=== PATIENT | female | born 1970 | race Two or more races ===

== ENCOUNTER 2016-11-10 19:09 | Inpatient (IN) | payer MEDICAID ==
[~2016-11-10] VITALS: Ht 142.2 cm; Wt 55.8 kg
[2016-11-10 20:18] LABS: CALCIUM 8.2 mg/dL (8.5-10.1); CARBON DIOXIDE 28.5 mmol/L (21-32); CHLORIDE SERUM 105 mmol/L (98-107); CREATININE SERUM 0.8 mg/dL (0.6-1.0); GFR1 > 60 mL/min; GLUCOSE SERUM 113 mg/dL (74-106); POTASSIUM SERUM 4.2 mmol/L (3.5-5.1); SODIUM SERUM 139 mmol/L (136-145)
[2016-11-10 20:20] LABS: BASOPHIL % 0.6 % (0-2); PLATELET COUNT 310 x10^3mcL (130-400)
[2016-11-10 20:22] LABS: RED CELL DISTRIBUTION WIDTH 20.8 % (11.5-14.5)
[2016-11-10 20:23] LABS: ALKALINE PHOSPHATASE 68 U/L (46-116); ALT/SGPT 39 U/L (14-59); AST/SGOT 20 U/L (15-37); BILIRUBIN TOTAL 0.2 mg/dL (0.20-1.00); TOTAL PROTEIN, SERUM 7.2 g/dL (6.4-8.2)
[2016-11-10 20:26] LABS: ALBUMIN 3.3 g/dL (3.4-5.0)
[2016-11-10 20:36] LABS: rbc morphology (normal/abnorm) ABNORMAL (NORMAL)
[2016-11-10 20:48] LABS: AMPHETAMINE QUAL UR NONE DETECTED (NEG <=1000)
[2016-11-10] MEDS ORDERED: LEVOTHYROXIN0.025 M2 PO (21:45)
[2016-11-10] MEDS ORDERED: PROTONIX20 MG PO (21:46)
[2016-11-10] MEDS ORDERED: NATURAL IRON65 MG (21:46)
[2016-11-10 22:41] VITALS: BP 127/52
[2016-11-11 00:56] LABS: T3 TOTAL 1.11 ng/mL
[2016-11-11 00:57] LABS: CHOLESTEROL/HDL RATIO 4.8
[2016-11-11 00:59] LABS: FREE T4 0.88 ng/dL (0.76-1.46); FREE THYROXINE INDEX 2.8 ug/dL (1.4-4.5); T4(THYROXINE) 8.9 ug/dL (4.7-13.3)
[2016-11-11 01:01] LABS: UA SPECIFIC GRAVITY <=1.005 (1.005-1.035); microscopic required? YES; urine erythrocyte 2+ (NEGATIVE)
[2016-11-11 05:33] VITALS: BP 130/74
[2016-11-11 10:58] VITALS: BP 112/72
[2016-11-11 13:52] VITALS: BP 112/63
[2016-11-11 18:05] VITALS: BP 110/62
[2016-11-11 23:06] VITALS: BP 105/61
[2016-11-12 05:33] VITALS: BP 107/68
[2016-11-12 06:37] LABS: CALCIUM 8.1 mg/dL (8.5-10.1); CARBON DIOXIDE 26.5 mmol/L (21-32); CHLORIDE SERUM 105 mmol/L (98-107); CREATININE SERUM 0.8 mg/dL (0.6-1.0); GFR1 > 60 mL/min; GLUCOSE SERUM 98 mg/dL (74-106); MAGNESIUM 1.9 mg/dL (1.8-2.4); PHOSPHOROUS 3.3 mg/dL (2.5-4.9); POTASSIUM SERUM 4.2 mmol/L (3.5-5.1); SODIUM SERUM 140 mmol/L (136-145)
[2016-11-12 07:19] LABS: BASOPHIL % 0.4 % (0-2); PLATELET COUNT 316 x10^3mcL (130-400)
[2016-11-12 08:54] VITALS: BP 121/71
[2016-11-12 13:20] VITALS: BP 121/71
[2016-11-12 13:32] VITALS: BP 109/68
[2016-11-12] MEDS ORDERED: ELA25 PO (13:56)
[2016-11-12] MEDS ORDERED: PRI20 PO (13:56)
[2016-11-12] MEDS ORDERED: BIA500 PO (13:56)
[2016-11-12] MEDS ORDERED: AMO500 PO (13:56)
== END 2016-11-12 15:30 | disposition home or self-care (01) | DRG 243 ==
LOC: ED 19:09 → DU 21:03 → MU 11-12 08:21
PROVIDERS: Emergency Medicine; Internal Medicine Gastroenterology; ADMIT Family Medicine
PROC: 0DB68ZX Excision of Stomach, Via Natural or Artificial Opening Endoscopic, Diagnostic (ICD-10-PCS; principal; 2016-11-11 10:00)
DX: K21.9 Gastro-esophageal reflux disease without esophagitis (principal); A04.8 Other specified bacterial intestinal infections; E44.0 Moderate protein-calorie malnutrition; K29.70 Gastritis, unspecified, without bleeding; D50.0 Iron deficiency anemia secondary to blood loss (chronic); E78.5 Hyperlipidemia, unspecified; I10 Essential (primary) hypertension; E03.9 Hypothyroidism, unspecified; F41.9 Anxiety disorder, unspecified; Z68.25 Body mass index [BMI] 25.0-25.9, adult
CPT/HCPCS: 43235; 80307; 83880; 84439; J1200; J1610; J2250; J2310; J2405; J3010; J3490; J7030; Q0092

== ENCOUNTER 2019-10-01 21:12 | Emergency (ER) | payer MEDICAID ==
[~2019-10-01] VITALS: Ht 142.2 cm; Wt 56.2 kg
[~2019-10-01 21:12] MED LIST: AMO500 PO; BIA500 PO; ELA25 PO; LEVOTHYROXIN0.025 M2 PO; NATURAL IRON65 MG; PRI20 PO; PROTONIX20 MG PO
[2019-10-01 21:20] VITALS: Ht 142.2 cm; Wt 56.2 kg
[2019-10-02 00:08] VITALS: BP 121/51
== END 2019-10-02 00:08 | disposition home or self-care (01) ==
LOC: ED 21:12
DX: J06.9 Acute upper respiratory infection, unspecified (principal); K21.9 Gastro-esophageal reflux disease without esophagitis; Z88.5 Allergy status to narcotic agent; Z86.2 Personal history of diseases of the blood and blood-forming organs and certain disorders involving the immune mechanism
CPT/HCPCS: 87804; Q0092

== ENCOUNTER 2019-10-04 01:36 | Emergency (ER) | payer MEDICAID ==
[~2019-10-04] VITALS: Ht 149.9 cm; Wt 56.5 kg
[2019-10-04 01:43] VITALS: BP 127/56; Ht 149.9 cm; Wt 56.5 kg
== END 2019-10-04 02:48 | disposition home or self-care (01) ==
LOC: ED 01:36
DX: J20.9 Acute bronchitis, unspecified (principal); K21.9 Gastro-esophageal reflux disease without esophagitis; E03.9 Hypothyroidism, unspecified; Z88.6 Allergy status to analgesic agent
CPT/HCPCS: Q0092